=== PATIENT | male | born 1975 ===

== ENCOUNTER 2017-03-31 20:21 | Emergency (ER) | payer SELFPAY ==
[2017-03-31] MEDS ORDERED: MOTRIN PO ONE ×2 (22:34→22:35)
[2017-03-31 22:35] VITALS: BP 127/80
== END 2017-04-01 02:00 | disposition left against medical advice (07) ==
LOC: ED 20:21
DX: G43.909 Migraine, unspecified, not intractable, without status migrainosus (principal); Z53.21 Procedure and treatment not carried out due to patient leaving prior to being seen by health care provider